=== PATIENT | female | born 1965 | race Caucasian/White ===

== ENCOUNTER 2018-05-02 13:15 | Emergency (ER) | payer OTHER ==
[~2018-05-02] VITALS: Ht 162.6 cm; Wt 127.0 kg
[~2018-05-02 13:15] MED LIST: BUPRENORPHINE1 EACH TD; HYDROCHLOROTHIA25 MG PO; LABETALOL HCL100 MG PO; LOSARTAN POTASS50 MG PO; OMEPRAZOLE20 MG PO
--- OUTSIDE RECORDS SUMMARY | 2018-05-02 13:18 | XMS ---
PreManage Notification: LORI MARR Security Instructor Physical Events No recent Security Events currently on file CRITERIA MET - PDMP CARE PROVIDERS KRISTOFER [facility] 01/22/2018-Current PHONE: [phone] Kristin has no Care Guidelines for this patient. ESonja VISIT COUNT (12 MO.) 1 Migd[facility] In[facility] 2 JULIAN Newell TOTAL 3 NOTE: Visits indicate total known visits. ED/UCC VISIT TRACKING (12 MO.) 05/02/2018 13:15 JULIAN Pedroza TYPE: Emergency COMPLAINT: - BILAT FLANK PAIN 01/19/2018 09:11 JULIAN Pedroza TYPE: Emergency COMPLAINT: - L EYE PAIN/INJURY DIAGNOSES: - Ocular pain, left eye 12/25/2017 05:45 [facility]: Emergency DIAGNOSES: - CP SOB - Shortness of Breath - Chest Pain - Other chest pain - Solitary pulmonary nodule INPATIENT VISIT TRACKING (12 MO.) No inpatient visits to display in this time frame [email or web address]
[2018-05-02] MEDS ORDERED: NORCO 5-325 TA1 EACH PO (13:42)
[2018-05-02] MEDS ORDERED: PAROXETINE HCL40 MG PO (13:43)
[2018-05-02] MEDS ORDERED: LYRICA100 MG PO (13:43)
[2018-05-02] MEDS ORDERED: METHYLPREDNISOLO4 M1 PO (18:41)
[2018-05-02] MEDS ORDERED: ATIVAN1 MG PO (18:41)
== END 2018-05-02 19:01 | disposition home or self-care (01) ==
LOC: ED 13:15
DX: M54.5 Low back pain (principal); F17.200 Nicotine dependence, unspecified, uncomplicated; Z88.1 Allergy status to other antibiotic agents; Z88.0 Allergy status to penicillin; Z91.048 Other nonmedicinal substance allergy status
CPT/HCPCS: 72158; 80053; 81001; 85025; 96361; 99284-25; A9579; J1170; J1885; J2060; J2405; J2930; J7040

== ENCOUNTER 2024-07-16 09:15 | Inpatient (IN) | payer OTHER ==
[~2024-07-16] VITALS: Ht 162.6 cm; Wt 125.1 kg
[~2024-07-16 09:15] MED LIST changes: +ATIVAN1 MG PO; +HYDROCODON-ACE1 EA10 PO; +LYRICA100 MG PO; +METHYLPREDNISOLO4 M1 PO; +PAROXETINE HCL40 MG PO
--- OUTSIDE RECORDS SUMMARY | 2024-07-16 09:20 | XMS ---
PreManage Notification: LORI MARR Security Analytic Programmer Events No recent Security Events currently on file CRITERIA MET - [facility] - 2 Visits in 30 Days CARE PROVIDERS KRISTOFER [facility] 01/22/2018-Current PHONE: Unknown DENIA MCMAHON Internal Medicine Current PHONE: Unknown Kristin has no Care Guidelines for this patient. Marcia VISIT COUNT (12 MO.) [address] [place] [address] Mini Lozoya (Cassi Ye) [address] [place] [address] TOTAL 9 NOTE: Visits indicate total known visits. ED/UCC VISIT TRACKING (12 MO.) 07/16/2024 09:16 [facility] TYPE: Emergency COMPLAINT: - POSS STROKE SYMPTOMS [facility]24 12[facility]Cassi Ye[facility] TYPE: Emergency DIAGNOSES: - Other chest pain - Chest Pressure 02/16/2024 07:59 [facility] Cassi Ye PHIL (Cassi Ye) TYPE: Emergency DIAGNOSES: - Cellulitis, unspecified - Rectal abscess - Systemic inflammatory response syndrome (SIRS) of non-infectious origin without acute organ dysfunction - Abscess - poss abcess - poss abcess on rectum 01/23/2024 13:04 [facility] Cassi Ye PHIL (Cassi Ye) TYPE: Emergency DIAGNOSES: - Influenza due to other identified influenza virus with other respiratory manifestations - bodyaches - Emesis 11/29/2023 11:43 [facility] Cassi Ye PHIL (Cassi Ye) TYPE: Emergency DIAGNOSES: - Colic - Noninfective gastroenteritis and colitis, unspecified - abd pain - Abdominal Pain 11/28/2023 06:56 [facility] Cassi eY PHIL (Cassi Ye) TYPE: Emergency DIAGNOSES: - Infrarenal abdominal aortic aneurysm, without rupture - Noninfective gastroenteritis and colitis, unspecified - ABD PAIN, VOMITING - Abdominal Pain - Diarrhea (Adult) 11/24/2023 08:37 [facility] [place] TYPE: Emergency DIAGNOSES: - Injury of conjunctiva and corneal abrasion without foreign body, left eye, initial encounter - Eye injury 10/22/2023 08:46 [facility] Cassi VILLARREAL ([place]) TYPE: Emergency DIAGNOSES: - Bronchitis, not specified as acute or chronic - chest discomfort, cough - Chest Pain - Cough 08/07/2023 16:39 [facility] Cassi VILLARREAL ([place]) TYPE: Emergency DIAGNOSES: - Other enthesopathies, not elsewhere classified - Hand Pain - worsening finger infection INPATIENT VISIT TRACKING (12 MO.) 02/16/2024 07:[facility]Cassi Ye[facility] TYPE: Medical Surgical DIAGNOSES: - Acute kidney failure, unspecified - Candidal esophagitis - Candidal stomatitis - Cellulitis of buttock - Cellulitis, unspecified - Chronic pain syndrome - Cutaneous abscess of buttock - Hypo-osmolality and hyponatremia - Insomnia, unspecified - Multiple sclerosis - Polyneuropathy, unspecified - Rectal abscess - Systemic inflammatory response syndrome (SIRS) of non-infectious origin without acute organ dysfunction - Systemic sclerosis, unspecified [id number]
[2024-07-16] MEDS ORDERED: SODIUM CHLORIDE 0.9% 1,000 ML IV ONE (09:30)
[2024-07-16] MEDS ORDERED: ondansetron HCL 4 MG/2 ML VIAL IV ONE (09:45)
[2024-07-16 10:00] LABS: BASOPHILS 0.6 % (0.1-1.2); EOSINOPHILS 6.9 % (0.7-5.8); HEMATOCRIT 31.9 % (34.1-44.9); HEMOGLOBIN 9.9 g/dL (11.2-15.7); LYMPHOCYTES 20.8 % (19.3-51.7); MCH 26.6 PG (25.6-32.2); MCV 85.8 fL (79.4-94.8); MONOCYTES 8.5 % (4.7-12.5); PLATELET COUNT 232 K/uL (182-369); RBC 3.72 M/uL (3.93-5.22)
[2024-07-16] MEDS ORDERED: MIDAZOLAM HCL 2 MG/2 ML VIAL IV ONE ×2 (10:00→10:45)
[2024-07-16] MEDS ORDERED: diphenhydrAMINE HCL 50 MG/ML VIAL IV ONE (10:00)
[2024-07-16] MEDS ORDERED: PROCHLORPERAZINE EDISYLATE 10 MG/2 ML VIAL IV ONE (10:00)
[2024-07-16 10:20] LABS: ALBUMIN 3.4 g/dL (3.4-5.0); ALCOHOL, MEDICAL <3 ng/dL (<3); ALKALINE PHOSPHATASE 87 U/L (46-116); ALT (SGPT) 13 U/L (14-59); AST (SGOT) 11 U/L (15-37); BILIRUBIN, TOTAL 0.3 mg/dL (0.2-1.0); BUN/CREATININE RATIO 21.64 (6.0-28.6); CARBON DIOXIDE 29 mmol/L (21-32); CHLORIDE 107 mmol/L (98-107); CREATININE, SERUM 0.97 mg/dL (0.55-1.02); GLOMERULAR FILTRATION RATE,EST 68 mL/min (>60); PROTEIN, TOTAL 6.5 g/dL (6.4-8.2); UREA NITROGEN 21 mg/dL (7-18)
[2024-07-16 10:30] LABS: BILIRUBIN, URINE NEGATIVE (negative); BLOOD/HGB, URINE NEGATIVE (Negative); KETONE, URINE NEGATIVE (Negative); LEUK ESTERASE, URINE TRACE (negative); NITRITE, URINE NEGATIVE (negative); PH, URINE 7.5 (5-7)
[2024-07-16 10:38] LABS: EPITHELIAL CELLS, URINE 0 /lpf (0-1+); RED BLOOD CELLS, URINE 0-1 /hpf (0-5)
[2024-07-16 10:39] LABS: BACTERIA, URINE NONE SEEN /hpf (negative); CASTS, URINE NONE SEEN \\lpf; COLLECTION TYPE, URINE CLEAN CATCH; CRYSTALS, URINE NONE SEEN (0-1+); REFLEX CULTURE, URINE No (No)
[2024-07-16 10:50] LABS: AMPHETAMINES, URINE NEGATIVE (NEGATIVE); BENZODIAZEPINE, URINE NEGATIVE (NEGATIVE); BUPRENORPHINE, URINE NEGATIVE (NEGATIVE); CANNABINOID, URINE NEGATIVE (NEGATIVE); COCAINE, URINE NEGATIVE (NEGATIVE); ECSTASY, URINE NEGATIVE (NEGATIVE); FENTANYL, URINE NEGATIVE (NEGATIVE); METHADONE, URINE NEGATIVE (NEGATIVE); OPIATES, URINE POSITIVE (NEGATIVE); OXYCODONE, URINE NEGATIVE (NEGATIVE); PHENCYCLIDINE, URINE NEGATIVE (NEGATIVE)
[2024-07-16] MEDS ORDERED: ASPIRIN 81 MG CHEW PO ONE (12:00)
[2024-07-16] MEDS ORDERED: ondansetron HCL 4 MG/2 ML VIAL IV PRN (13:15)
[2024-07-16] MEDS ORDERED: ACETAMINOPHEN 325 MG TAB PO PRN (13:15)
[2024-07-16] MEDS ORDERED: SODIUM CHLORIDE 0.9% 1,000 ML IV SCH (13:15)
[2024-07-16] MEDS ORDERED: CLOPIDOGREL BISULFATE 75 MG TAB PO ONE (13:30)
--- NOTE | 2024-07-16 13:33 | EKG ---
[facility] [address] [place] [address] Signed Normal sinus rhythm Normal ECG No previous ECGs available Confirmed by Nicholas Villarreal MD () on 07/16/2024 1:33:29 PM Electronically Signed By: NICHOLAS VILLARREAL MD 07/16/24 1333 PATIENT NAME: LORI MARR ASH Electrocardiogram DATE OF : 65 PHYSICIAN: NICHOLAS VILLARREAL MD REPORT #: [id number] REPORT IS CONFIDENTIAL AND NOT TO BE RELEASED WITHOUT AUTHORIZATION
[2024-07-16 13:58] VITALS: BP 131/79
[2024-07-16 14:00] VITALS: BP 131/79
[2024-07-16] MEDS ORDERED: methylPREDNISolone SOD SUCC 1,000 MG in SODIUM CHLORIDE 0.9% 250 ML IV SCH (15:30)
--- NOTE | 2024-07-16 15:46 | NUR ---
ALERT AND ORIENTED IN ROOM. SISTER AND SON AT BEDSIDE. PATIENT LIVES IN SINGLE LEVEL HOME, 4 STEPS TO GET INSIDE. SHE LIVES WITH SON, [id number] AND GRANDDAUGHTER. STATES SHE HAS NO DME, BUT WAS SUPPOSED TO HAVE A 4 WHEELED WALKER AFTER SHE WAS DC'D FROM [facility]. STATES SHE WAS IN [facility] THE BEGINNING OF THIS YEAR AND WAS DC'D TO HOME IN THE MIDDLE OF MARCH. HISTORY OF MS AND HAS DAYS THAT ARE DIFFICULT FOR HER TO AMBULATE. SHE DRIVES AT [place]. DENIES FINANCIAL HARDSHIP. SHE STATES PAYING UTILITES, FOOD AND MEDICATIONS ARE NOT AN ISSUE. PT CURRENTLY RECOMMENDING HOME HEALTH. INFORMED PATIENT OF THIS AND SHE STATES [facility] OUT OF [place], [place] IS HER PREFERENCE WHEN OPTIONS PROVIDED. CALLED [facility] IN [place], [place] TO SEE IF THEY RECEIVED AN ORDER FOR A WALKER, BUT WERE NEVER ABLE TO GET AHOLD OF PATIENT FOR DELIVERY. IF SHE CALLS [facility], THEY CAN RESTART THE PROCESS TO GETTING HER A WALKER. PHONE NUMBER FOR [facility] PROVIDED TO PATIENT AND ENCOURAGED HER TO CALL TO GET HER WALKER.
[2024-07-16] MEDS ORDERED: NIFEDIPINE ER60 MG PO (16:16)
[2024-07-16] MEDS ORDERED: DULOXETINE HCL30 MG PO (16:17)
[2024-07-16] MEDS ORDERED: METOPROLOL SUC100 MG PO (16:18)
[2024-07-16] MEDS ORDERED: MODAFINIL200 MG PO (16:19)
[2024-07-16] MEDS ORDERED: LOSARTAN POTAS100 MG PO (16:19)
--- NOTE | 2024-07-16 16:57 | NUR ---
Patient awake in bed watching tv, no acute distress. Patient is on room air, respirations non labored. Scheduled [place] admin at this time. Pt denies needs at this time. Speech is clear, pt conversing with staff appropriately. Call light within reach.
[2024-07-16] MEDS ORDERED: HYDROCODONE/ACETA 5/325 TAB PO SCH (17:00)
[2024-07-16 17:51] VITALS: BP 148/98
[2024-07-16 18:53] VITALS: BP 148/98
--- NOTE | 2024-07-16 19:14 | NUR ---
REPORT RECEIVED FROM DAY SHIFT RN. PT LYING IN BED ALERT AND ORIENTED. DENIES NEEDS. WHITE BOARD UPDATED. CALL LIGHT IN REACH.
[2024-07-16 20:03] VITALS: BP 145/75
[2024-07-16 20:28] VITALS: BP 145/75
[2024-07-16] MEDS ORDERED: PREGABALIN 100 MG CAP PO SCH (21:00)
[2024-07-16] MEDS ORDERED: HYDROCODONE/ACETA 5/325 TAB PO PRN (21:00)
--- NOTE | 2024-07-16 21:03 | NUR ---
EVENING ASSESSMENT COMPLETE. SCHEDULED MEDS ADMIN PER EMAR. PT REPORTS BACK/METCALF PAIN 08/15. PRN FOR PAIN ADMIN PER EMAR. NEURO CHECK WNL. SENIOR QUALITY ANALYST STRENGTH EQUAL BILAT. PT DENIES BLURRED VISION OR DIZZINESS. NEW PUREWICK PLACED AFTER RYLEE CARE. PT ABLE TO ASSIST WITH TURNING IN BED. PT DENIES QUESTIONS OR CONCERNS. CALL LIGHT IN REACH.
--- NOTE | 2024-07-16 22:22 | NUR ---
PATIENT CALLED REQUESTING SODA. GIVEN. NO OTHER NEEDS AT THIS TIME.
[2024-07-17] VITALS (11 sets, daily range): BP systolic 159–203; BP diastolic 82–97
--- NOTE | 2024-07-17 00:01 | NUR ---
PT RESTING IN BED WITH EYES CLOSED. RESPIRATIONS EVEN. CALL LIGHT IN REACH.
--- NOTE | 2024-07-17 01:28 | NUR ---
PT RESTING WITH EYES CLOSED. AWAKENS EASILY. VS AND I&O OBTAINED. BP ELEVATED. MD NOTIFIED. NEW TELEPHONE ORDERS RECEIVED VERIFIED WITH READBACK METHOD. PT ASYMPTOMATIC. NEURO CHECK UNCHANGED. ASSISTED TO REPOSITION IN BED TO LEFT SIDE WITH PILLOWS. NO FURTHER NEEDS. CALL LIGHT IN REACH.
[2024-07-17] MEDS ORDERED: LOSARTAN POTASSIUM 100 MG TAB PO ONE (01:30)
--- NOTE | 2024-07-17 02:14 | NUR ---
PT REPORTS HEADACHE PAIN 08/15. PRN FOR PAIN ADMIN PER EMAR. WARM BLANKET PROVIDED. NO FURTHER NEEDS.
--- NOTE | 2024-07-17 03:47 | NUR ---
PT RESTING IN BED WITH EYES CLOSED. RESPIRATIONS EVEN. CALL LIGHT IN REACH.
[2024-07-17 05:21] LABS: BASOPHILS 0 % (0.1-1.2); EOSINOPHILS 0 % (0.7-5.8); HEMATOCRIT 30.1 % (34.1-44.9); HEMOGLOBIN 9.4 g/dL (11.2-15.7); LYMPHOCYTES 16.6 % (19.3-51.7); MCH 26.5 PG (25.6-32.2); MCHC 31.2 g/dL (32.2-35.5); MCV 84.8 fL (79.4-94.8); MONOCYTES 3.5 % (4.7-12.5); NEUTROPHILS 79.7 % (34.0-71.1); PLATELET COUNT 222 K/uL (182-369); RBC 3.55 M/uL (3.93-5.22)
[2024-07-17 05:37] LABS: ALBUMIN 3.3 g/dL (3.4-5.0); ALBUMIN/GLOBULIN RATIO 1.06 (1.1-2.4); ANION GAP 12.5 (7-21); BILIRUBIN, TOTAL 0.2 mg/dL (0.2-1.0); BUN/CREATININE RATIO 23.52 (6.0-28.6); CALCIUM 9.2 mg/dL (8.5-10.1); CHOLESTEROL/HDL RATIO 3.4; CREATININE, SERUM 0.85 mg/dL (0.55-1.02); MAGNESIUM 1.7 mg/dL (1.8-2.4); PHOSPHORUS, INORGANIC 4.3 mg/dL (2.5-4.9); POTASSIUM 4.5 mmol/L (3.5-5.1); PROTEIN, TOTAL 6.4 g/dL (6.4-8.2)
--- NOTE | 2024-07-17 05:54 | NUR ---
LAB IN FOR MORNING DRAW. NEW PUREWICK PLACED AFTER RYLEE CARE. VS AND I&O OBTAINED. BREAKFAST ORDER RECEIVED. NO FURTHER NEEDS. CALL LIGHT IN REACH.
--- NOTE | 2024-07-17 06:51 | NUR ---
PER PRIMARY RN REQUEST, IN ROOM TO ADMINISTER PRN PAIN MEDICATION-SEE EMAR. PT REQUESTING 2 NORCOS, DISCUSSED WITH PT MAX NORCO DAILY INTAKE W/ PT PER EMAR. PT VERBALIZED UNDERSTANDING. CALL LIGHT IN REACH. NO FURTHER NEEDS OR CONCERNS VERBALIZED.
--- NOTE | 2024-07-17 07:35 | NUR ---
UR CLINICAL REVIEW: YANICK-PER MCG REVIEW MEETS INPT FOR CVA WITH R UPP EXTREMITY WEAKNESS [facility] 07/16/24 @ 1334 ORDER MATCHES REG CLINICALS FAXED TO [facility] FOR REVIEW DISCHARGE DISPO PENDING FURTHER PT/OT EVAL 07/19/24
[2024-07-17] MEDS ORDERED: MAGNESIUM CHLORIDE 64 MG TABCR PO ONE (07:45)
[2024-07-17] MEDS ORDERED: ASPIRIN 81 MG CHEW PO SCH (08:00)
[2024-07-17] MEDS ORDERED: ENOXAPARIN SODIUM 40 MG/0.4 ML SYR SUB-Q SCH ×2 (09:00)
[2024-07-17] MEDS ORDERED: methylPREDNISolone SOD SUCC 1,000 MG in SODIUM CHLORIDE 0.9% 250 ML IV SCH (09:00)
[2024-07-17] MEDS ORDERED: CLOPIDOGREL BISULFATE 75 MG TAB PO SCH (09:00)
[2024-07-17] MEDS ORDERED: DULOXETINE HCL 30 MG CAP PO SCH (09:00)
[2024-07-17] MEDS ORDERED: methylPREDNISolone SOD SUCC 125 MG/2 ML VIAL IV SCH (09:00)
[2024-07-17] MEDS ORDERED: PANTOPRAZOLE SODIUM 40 MG TABEC PO SCH (09:02)
[2024-07-17] MEDS ORDERED: METOPROLOL SUCCINATE 100 MG TABCR PO SCH (09:02)
--- NOTE | 2024-07-17 09:13 | NUR ---
THIS RN SEES THE PT FOR A SIMPLE WOUND CONSULT OF THE COCCYX/GLUTEAL CLEFT AREA. PT REPORTS THAT SHE HAS BEEN GOING TO [facility] FOR A WOUND NEAR HER RETCUM, BUT THEY WERE TALKING ABOUT ENDING TREATMENT WITHIN THE NEXT FEW WEEKS. UPON ASSESSMENT, IT IS NOTED THERE THERE IS NO OPEN WOUNDS OR BREAKS IN THE SKIN NEAR HER RECTUM. SHE DOES HOWEVER HAVE SLIGHT EXCORIATION DUE TO FRICTION/SHEARING ON THE COCCYX AREA IN THE GLUTEAL CLEFT. [facility] APPRAISER CHANTELLE ALSO PUTS EYES ON THE WOUND. IT IS RECOMMENDED THAT STAFF APPLY A FOAM DRESSING PROPHYLATICALLY TO PROTECT THE SKIN. IT IS ALSO RECOMMENDED THAT IF THEY ARE GOING TO CONTINUE TO USE THE PUREWICK TO APPLY BARRIER CREAM AROUND THE AREA TO PROTECT THE SKIN FROM ANY LEAKED URINE. PT AND RN'S VERBALIZE UNDERSTANDING AND AGREEMENT.
[2024-07-17] MEDS ORDERED: hydroCHLOROthiazide 25 MG TAB PO SCH (09:14)
--- NOTE | 2024-07-17 09:56 | NUR ---
ECHO in working with patient.
--- NOTE | 2024-07-17 09:56 | NUR ---
THIS RN ASSISTED SAMPLE DRILLER WITH BUBBLE STUDY. PT TOLERATED, IV SOLUMEDROL RESTARTED. SAMPLE DRILLER LEFT TO COMPLETE REMAINING STUDY. PRIMARY RN UPDATED. CALL LIGHT LEFT WITHIN PT REACH.
--- NOTE | 2024-07-17 10:00 | NUR ---
Dr. Almendarez updated on bp-/, p72. No new orders at this time.
--- NOTE | 2024-07-17 10:29 | NUR ---
VISITED DURING SPIRITUAL CARE ROUNDS. PT IN OVERALL GOOD SPIRITS, STATES NO IMMEDIATE NEEDS. [employer] FAMILY SUPPORT SOURCE OF STRENGTH. DAIRY PROCESSING SUPERVISOR PROVIDED SUPPORTIVE PRESENCE, HOSPITALITY, PRAYER, FACILITATED INTERACTION WITH THERAPY ANIMAL. PT EXPRESSED GRATITUDE, HOPE.
--- NOTE | 2024-07-17 10:33 | NUR ---
HOURLY ROUNDING. PATIENT IS SITTING UP IN BED. LUNCH HAS BEEN ORDERED TO HER LIKING. WATER HAS BEEN REPLENISHED AND CALL LIGHT HAS BEEN PLACED WITHIN REACH. NO FURTHER REQUEST FROM PATIENT AT THIS TIME
--- NOTE | 2024-07-17 11:15 | NUR ---
I was able to speak with Janice after two attempts. She would like to do OP therapy after dc. She is unsure if she wants it in [place] or [place]. She works in [place] and would like to have therapy here if she will be allowed to return to work soon. She states concern as she spent close to a month in the hospital out of town. She states she is just getting caught up on her bills. I spoke with Dr. Almendarez and he feels she can return to work on Monday. Pt would like to have PT at the [facility] in [place] if this is the case. Let her know I will fax her chart to OP at the [facility] on discharge. She denies other needs. We also discussed Disability. She attempted to complete on line, but had errors. She was notified by SS to go to the office. I let her know where the office in [place]. She states she can also go to the one in [place]. She plans on return to home with her son. Per AM report, pt will need 1-2 more days before dc.
--- NOTE | 2024-07-17 11:25 | NUR ---
Patient reports 7/10 headache and back pain. Admin two tabs norco 5/325mg po at this time. Patient's speech remains clear and appropriate.
--- NOTE | 2024-07-17 11:43 | NUR ---
HOURLY ROUNDING. NO REQUEST FROM PATIENT. HEATHER PATIENT ROOM. CALL LIGHT PLACED WITHIN REACH
[2024-07-17] MEDS ORDERED: PHARMACY RENAL DOSE ADJUSTMENT 1 DOSE MISC PO SCH (12:00)
[2024-07-17] MEDS ORDERED: LIDOCAINE1 EACH TOP (13:11)
[2024-07-17] MEDS ORDERED: ONDANSETRON ODT4 MG PO (13:11)
--- NOTE | 2024-07-17 13:13 | NUR ---
HOURLY ROUNDING. OFFERED PATIENT A SHOWER, PATIENT DECLINED. SHOWER IS SET UP FOR PATIENT WITH TOWEL AND SOAPS. NURSE HAS BEEN NOTIFIED OF HIGH BP
--- NOTE | 2024-07-17 13:27 | NUR ---
medications reconciled using pharmacy records and patient interview
--- NOTE | 2024-07-17 14:52 | NUR ---
Patient in bed watching tv, alert and oriented x3, no acute distress. Patient denies needs at this time. Personal supplies and call light within reach.
--- NOTE | 2024-07-17 15:31 | NUR ---
BP cuff replaced for appropriate size. bp 184/87, p66. Patient in bed resting in bed, she reports an ongoing headache. Ice pack provided to patient at this time for comfort.
--- NOTE | 2024-07-17 17:46 | NUR ---
HOURLY ROUNDING. PATIENT REFUSED SHOWER. AFTER BEING OFFERED ONE CALL LIGHT HAS BEEN PLACED WITHIN REACH
--- NOTE | 2024-07-17 18:46 | NUR ---
Admin two tabs norco 5/325mg po for reports of 6/10 back pain. Snack provided to patient at this time. Patient reports her headache has improved. No further needs, call light within reach.
--- NOTE | 2024-07-17 19:39 | NUR ---
REPORT RECEIVED FROM DAYSHIFT RN. PATIENT RESTING IN BED, WATCHING TV. NO NEEDS IDENTIFIED. RESPIRATIONS EVEN AND UNLABORED. PATIENT REPORTS SHE STILL HAS A PERSISTENT HEADACHE BUT STATES SHE WAS GIVEN PAIN MEDICATION BY THE DAYSHIFT RN. DENIES ANY NEEDS, CALL LIGHT IN REACH.
[2024-07-17] MEDS ORDERED: ATORVASTATIN 40 MG TAB PO SCH (21:00)
--- NOTE | 2024-07-17 21:20 | NUR ---
VS OBTAINED AND RECORDED. ASSESSMENT COMPLETED. PATIENT DENIES NUMBNESS OR TINGLING IN EXTREMITIES, REPORTS 7/10 HEADACHE THAT SHE STATES IS SLOWLY IMPROVING. 5/5 STRENGTH IN EXTREMITIES. BP INITIALLY ELEVATED, SYSTOLLICALLY ABOVE 180. VERIFIED WITH MANUAL BP. MANUAL BP DOCUMENTED IN CHART. PATIENT REQUESTED ALEX CHARLEE, GIVEN PER REQUEST. NO FURTHER NEEDS, CALL LIGHT IN REACH. SCHEDULED MEDICATION ADMINISTERED PER ORDER.
--- NOTE | 2024-07-17 23:19 | NUR ---
ROUNDED ON PATIENT, PATIENT RESTING WITH EYES CLOSED, RESPIRATIONS ARE EVEN AND UNLABORED. NO NEEDS IDENTIFIED, CALL LIGHT IN REACH
[2024-07-18] VITALS (14 sets, daily range): BP systolic 139–184; BP diastolic 79–92
--- NOTE | 2024-07-18 00:39 | NUR ---
CALL LIGHT ANSWERED. PRN PAIN MEDICATION GIVEN FOR 7/10 HEADACHE AND BACK DISCOMFORT. PATIENT DENIES FURTHER NEEDS. PATIENT REMINDED TO USE CALL LIGHT TO CALL RN TO GET UP TO RESTROOM, UNDERSTANDING VERBALIZED. NO FURTHER NEEDS, CALL LIGHT IN REACH
--- NOTE | 2024-07-18 01:36 | NUR ---
BUSINESS CASE ANALYST OBTAINED VITALS AND I&O. PT STATES NO NEEDS AT THIS TIME. CALL LIGHT WITHIN REACH.
--- NOTE | 2024-07-18 01:46 | NUR ---
CERTIFIED SOLID WASTE FACILITY OPERATOR INFORMED RN OF BP RESULTS. BP TAKEN MANUALLY AND DOCUMENTED IN CHART. PATIENT DENIES ANY NEEDS, CALL LIGHT IN REACH.
--- NOTE | 2024-07-18 03:30 | NUR ---
ROUNDED ON PATIENT, PATIENT RESTING WITH EYES CLOSED, RESPIRATIONS EVEN AND UNLABORED. NO NEEDS IDENTIFIED, CALL LIGHT IN REACH
--- NOTE | 2024-07-18 05:37 | NUR ---
VS OBTAINED AND RECORDED. PATIENT ALERT AND ORIENTED X4, REPORTS HEADACHE IS IMPROVING AND IS NOW 4/10. INTAKE AND OUTPUT DOCUMENTED. DENIES ANY NEEDS, CALL LIGHT IN REACH.
[2024-07-18 05:43] LABS: ALBUMIN 3.7 g/dL (3.4-5.0); ALBUMIN/GLOBULIN RATIO 1.19 (1.1-2.4); ANION GAP 13.3 (7-21); BILIRUBIN, TOTAL 0.2 mg/dL (0.2-1.0); BUN/CREATININE RATIO 28.91 (6.0-28.6); CALCIUM 9.5 mg/dL (8.5-10.1); CREATININE, SERUM 0.83 mg/dL (0.55-1.02); POTASSIUM 4.3 mmol/L (3.5-5.1); PROTEIN, TOTAL 6.8 g/dL (6.4-8.2)
[2024-07-18 05:52] LABS: HEMATOCRIT 31.3 % (34.1-44.9); HEMOGLOBIN 9.9 g/dL (11.2-15.7); MCH 26.3 PG (25.6-32.2); MCHC 31.6 g/dL (32.2-35.5); MCV 83.2 fL (79.4-94.8); PLATELET COUNT 242 K/uL (182-369); RBC 3.76 M/uL (3.93-5.22)
[2024-07-18 06:06] LABS: BANDS, MANUAL DIFF 1; BASOPHILS, MANUAL DIFF 1; LYMPHOCYTES, MANUAL DIFF 18; MONOCYTES, MANUAL DIFF 4; NEUTROPHILS, MANUAL DIFF 76
--- NOTE | 2024-07-18 06:49 | NUR ---
CALL LIGHT ANSWERED. PT NEEDED TO USE BATHROOM. TRAIN ENGINEER SBA WITH FWW TO BATHROOM. PT VOIDED AND ASSISTED BACK TO BED. PT REQUESTING PAIN MED. RN NOTIFED. PT STATES NO FURTHER NEEDS AT THIS TIME. CALL LIGHT WITHIN REACH.
--- NOTE | 2024-07-18 07:01 | NUR ---
REPORT RECEIVED FROM ALARM INVESTIGATOR MARTINA LOVETT. PATIENT IS LYING IN BED WITH HOB ELEVATED. PATIENT WITH EYES OPEN AND RESPIRATIONS ARE EVEN AND UNLABORED. PATIENT STATED NO FURTHER NEEDS AT THIS TIME. CALL LIGHT AND PERSONAL BELONGINGS ARE WITHIN REACH.
--- NOTE | 2024-07-18 08:30 | NUR ---
PATIENT IS LYING IN BED WITH HOB ELEVATED. VITAL SIGNS TAKEN AND DOCUMENTED IN THE CHART. BREAKFAST TRAY REMOVED AT THIS TIME. 0800 AND 0900 MEDICATIONS ADMINISTERED PER THE EMAR. FULL ASSESSMENT COMPLETE AND DOCUMENTED IN THE CHART. PATIENT IS ALERT AND ORIENTED TIMES FOUR. PATIENT RATED PAIN 7/10 IN THE BACK AND A HEADACHE. PATIENT IS NOT REQUESTING ANYTHING FOR PAIN AT THIS TIME. PATIENT IS ON TELEMETRY NUMBER 2 AND IN NORMAL SINUS RHYTHM. CARDIAC WITH NORMAL S1 AND S2 ON AUSCULTATION. RADIAL AND PEDAL PULSES ARE STRONG BILATERALLY. NO EDEMA NOTED. CAPILLARY REFILL IN THE UPPER AND LOWER EXTREMITIES IS LESS THAN 3 SECONDS BILATERALLY. SENSATION INTACT WITH NO COMPLAINTS OF NUMBNESS OE TINGLING. PT AND OT ARE ORDERED. IV SITE FLUSHED WITH 10 ML NORMAL SAINE AND IS SALINE LOCKED. IV DRESSING IS CLEAN, DRY, AND INTACT. SKIN WITH SCATTERED TATTOOS NOTED. PATIENT IS ON A REGULAR DIET AND BOWEL TONES ARE ACTIVE IN ALL FOUR QUADRANTS. PATIENT IS ON ROOM AIR AND LUNG SOUNDS ARE CLEAR THROUGHOUT. PATIENT STATED NO FURTHER NEEDS AT THIS TIME. CALL LIGHT AND PERSONAL BELONGINGS ARE WITHIN REACH.
[2024-07-18] MEDS ORDERED: NIFEdipine XL 30 MG TAB PO SCH (09:00)
[2024-07-18] MEDS ORDERED: LOSARTAN POTASSIUM 100 MG TAB PO SCH (09:00)
--- NOTE | 2024-07-18 09:03 | NUR ---
OCCUPATIONAL THERAPY IS IN THE ROOM AT THIS TIME. PATIENT IS IN THE BATHROOM.
--- NOTE | 2024-07-18 09:52 | NUR ---
HOURLY ROUNDING. PATIENT IS IN THE SHOWER, LINENS HAVE BEEN CHANGED. AND RECLINER CHAIR HAS BEEN PREPED FOR PATIENT TO SIT IN. (Fernando pad) pillows. WATER CUP HAS BEEN FILLED AN GINGERALE GIVEN. PATIENT REPORTED HAVING A SLIGHT HEAD PAIN, PATIENT REPORTS IT BEING NORMAL. RN HAS BEEN NOTIFIED. FOOT SOCKS HAVE BEEN PUT ON PATIENT
--- NOTE | 2024-07-18 10:36 | NUR ---
PATIENT IS SITTING UPRIGHT IN THE CHAIR AND IS LOOKING ON HER PHONE. PATIENT IS ON ROOM AIR. CALL LIGHT AND PERSONAL BELONGINGS ARE WITHIN REACH.
--- NOTE | 2024-07-18 11:00 | NUR ---
Spoke with Janice. She plans on dc tomorrow. Denies any needs. Will do OP therapy on dc.
--- NOTE | 2024-07-18 11:17 | NUR ---
0900 METHYLPREDNISOLONE INFUSION STARTED AT THIS TIME. TRAUMA/STROKE RN IS ROUNFING ON THE PATIENT AT THIS TIME WITH THIS RN IN THE ROOM. EDUCATION GIEN AND PATIENT ASKED QUESTIONS. PATIENT EXPRESSED UNDERSTANDING THROUGHOUT THE INFORMATION BEING GIVEN. PATIENT RIGHT ARM WITH A FACE CLOTH AND DENISE WRAP AROUND THE IV SITE TO HELP A REMINDER FOR BENDING THE ARM. PATIENT STATED NO FURTHER NEEDS AT THIS TIME. CALL LIGHT AND PERSONAL BELONGINGS ARE WITHIN REACH.
--- NOTE | 2024-07-18 11:25 | NUR ---
Stroke Rounds: Patient resting in bed. Discussed it was reported her symptoms of "dizziness and spinning" had been happening for 2 days. It was discussed that these are symtpoms of [facility]. Educated on the symtpoms of [facility] and to call 911 when having these symtpoms. We discussed that "T" in [facility] is time, and how the time is important for deciding if the patient is a canidate for time senitive treatments (TNK, possible thrombectomy). Education pamplet and [facility] refrigerator magnet were provided.
--- NOTE | 2024-07-18 12:23 | NUR ---
AT 10:10 AM I REATTACHED PATIENTS TELE AFTER HER SHOWER, DAYTON VILLAR HAD ASKED MARTINA RITTER TO DO IT THEN MARTINA RITTER ASKED ME TO DO IT.
--- NOTE | 2024-07-18 12:57 | NUR ---
HOURLY ROUNDING. PATIENT IS IN BED. FAMILY (SON, AND GRANDDAUGHTER) IS AT BED SIDE. PATIENT REPORTED NOT BEING HUNGRY DUE TO HAVING A BIG BREAKFEAST. NO REQUEST FROM PATIENT AT THIS TIME.
--- NOTE | 2024-07-18 13:24 | NUR ---
In with pt for IV Pump alarming, infusion complete. IV s/l at this time, good return, flushes well. Pt denies any pain, no swelling, redness or leaking noted, dressing intact. Pt denies any needs at this time. Primary RN notified.
--- NOTE | 2024-07-18 13:51 | NUR ---
1500 LYRICA ADMINISTERED PER THE EMAR. FOCUSED ASSESSMENT COMPLETE AND DOCUMENTED IN THE CHART. PATIENT IS ALERT AND ORIENTED TIMES FOUR. PATIENT WITH NO COMPLAINTS OF WEAKNESS OR NUMBNESS OR TINGLING. IV SITE FLUSHED WITH 10 ML NORMAL SALINE AND IS SALINE LOCKED. IV DRESSING IS CLEAN, DRY, AND INTACT. CARDIAC WITH NORMAL S1 AND S2 ON AUSCULTATION. PATIENT IS ON TELEMETRY NUMBER 2 AND IS IN NORMAL SINUS RHYTHM. PATIENT RATED PAIN 5/10 A HEADACHE. PATIENT IS NOT REQUESTING ANYTHING FOR PAIN AT THIS TIME. IV PUMP CLEARED OF INTAKE FLUIDS. PATIENT STATED NO FURTHER NEEDS AT THIS TIME. CALL LIGHT AND PERSONAL BELONGINGS ARE WITHIN REACH.
--- NOTE | 2024-07-18 14:15 | NUR ---
PATIENT IS LYING IN BED WITH EYES CLOSED AND RESPIRATIONS ARE EVEN AND UNLABORED. TV IS ON. CALL LIGHT AND PERSONAL BELONGINGS ARE WITHIN REACH.
--- NOTE | 2024-07-18 15:12 | NUR ---
PATIENT AMBULATED TO THE BATHROOM WITH A CANE AND SBA. PATIENT VOID 300 ML LIGHT YELLOW URINE. PATIENT TOLERATED WELL. PATIENT RETURNED TO BED WITH A BLANKET. PATIENT STATED NO FURTHER NEEDS AT THIS TIME. CALL LIGHT AND PERSONAL BELONGINGS ARE WITHIN REACH.
--- NOTE | 2024-07-18 16:14 | NUR ---
PATIENT IS LYING IN BED WITH EYES OPEN AND RESPIRATIONS ARE EVEN AND UNLABORED. TV IS ON. PATIENT IS REQUESTING PAIN MEDICATION WHEN IS IT AVAILABLE. PATIENT STATED "NO LOPES IF YOU HAVE OTHER THINGS TO DO". THIS RN EDUCATED PATIENT ON LOOKING WHEN SHE IS NEXT DUE. PATIENT EXPRESSED UNDERSTANDING. PATIENT STATED NO FURTHER NEEDS AT THIS TIME. CALL LIGHT AND PERSONAL BELONGINGS ARE WITHIN REACH.
--- NOTE | 2024-07-18 16:48 | NUR ---
PATIENT AMBULATED TO THE BATHROOM WITH SBA WITH THE CANE. PATIENT VOID 550 ML OF URINE. PATIENT TOLERATED WELL. FRESH CUP OF ICE WATER PROVIDED. PRN PAIN MEDICATION ADMINISTERED. PATIENT GIVEN A WARM BLANKET BY SARA FREITAS. PATIENT STATED NO FURTHER NEEDS AT THIS TIME. CALL LIGHT AND PERSONAL BELONGINGS ARE WITHIN REACH.
--- NOTE | 2024-07-18 17:21 | NUR ---
PATIENT IS LYING IN BED WITH HOB ELEVATED. PATIENT WITH EYES OPEN AND RESPIRATIONS ARE EVEN AND UNLABORED. TV IS ON. PATIENT IS EATING DINNER AT THIS TIME. CALL LIGHT AND PERSONAL BELONGINGS ARE WITHIN REACH.
--- NOTE | 2024-07-18 18:05 | NUR ---
PATIENT IN BED AT THIS TIME. SHIP SCRAPER CHARTED I&O'S, MARTINA RITTER CHARTED VITALS. CALL LIGHT WITHIN REACH, NO FURTHER NEEDS.
--- NOTE | 2024-07-18 18:06 | NUR ---
DAYTON YARBROUGH IS IN THE ROOM AT THIS TIME AND GETTING INTAKE AND OUTPUT VALUES. PATIENT ASKED THIS RN QUESTIONS REGARDING A DISCHARGE TIME TOMORROW. PATIENT EDUCATED ON THE MORNING MEETING AND GETTING MORE INFORMATION AND AN ACCURATE DISCHARGE TIME AFTERWARDS. PATIENT EDUCATED ON THE PROCESS ONCE GETTING THE DISCHARGE ORDER. PATIENT EXPRESSED UNDERSTANDING. PATIENT STATED NO FURTHER NEEDS AT THIS TIME. CALL LIGHT AND PERSONAL BELONGINGS ARE WITHIN REACH.
--- NOTE | 2024-07-18 19:22 | NUR ---
REPORT RECEIVED FROM MARTINA RITTER. PATIENT RESTING WITH EYES CLOSED, RESPIRATIONS EVEN AND UNLABORED. PERSONAL BELONGINGS WITHIN REACH. NO NEEDS ARE IDENTIFIED, CALL LIGHT IN REACH.
--- NOTE | 2024-07-18 20:05 | NUR ---
CALL LIGHT ANSWERED. PT NEEDED TO USE BATHROOM. BLOWING ENGINEER SBA WITH CANE TO BATHROOM. PT VOIDED AND ASSISTED BACK TO BED. PT GIVEN JELLO UPON REQUEST. PT STATES NO FURTHER NEEDS AT THIS TIME. CALL LIGHT WITHIN REACH.
--- NOTE | 2024-07-18 20:40 | NUR ---
VS OBTAINED AND RECORDED. BP OBTAINED VIA MANUAL BP. PATIENT RESTING IN BED, RESPIRATIONS EVEN AND UNLABORED. SHE IS A&OX4, DENIES NUMBNESS AND TINGLING IN ANY EXTREMITIES. SCHEDULED MEDICATIONS ADMINISTERED PER ORDER. PATIENT DENIES ANY NEEDS, CALL LIGHT IN REACH.
[2024-07-18] MEDS ORDERED: POLYETHYLENE GLYCOL 3350 1 PACKET PO SCH (21:00)
[2024-07-18] MEDS ORDERED: SENNOSIDES/DOCUSATE 1 EA TAB PO SCH (21:00)
--- NOTE | 2024-07-18 22:18 | NUR ---
CALL LIGHT ANSWERED. PT NEEDED TO USE BATHROOM. PROCESS COORDINATOR SBA WITH CANE TO BATHROOM. PT VOIDED AND ASSISTED BACK TO BED. PT REQUESTING PAIN MED. RN NOTIFED. PT STATES NO FURTHER NEEDS AT THIS TIME. CALL LIGHT WITHIN REACH.
--- NOTE | 2024-07-18 22:20 | NUR ---
CALL LIGHT ANSWERED, PATIENT REQUESTED PRN PAIN MEDICATION FOR 8/10 BACK PAIN AND HEADACHE. PRN MEDICATION ADMINISTERED PER ORDER. SHE DENIES ANY OTHER NEEDS, CALL LIGHT IN REACH.
[2024-07-19] VITALS (7 sets, daily range): BP systolic 144–184; BP diastolic 70–98
--- NOTE | 2024-07-19 00:14 | NUR ---
ROUNDED ON PATIENT, PATIENT RESTING WITH EYES CLOSED, RESPIRATIONS EVEN AND UNLABORED. NO NEEDS IDENTIFIED, ALL PERSONAL BELONGINGS WITHIN REACH. CALL LIGHT IN REACH
--- NOTE | 2024-07-19 01:30 | NUR ---
CONSTRUCTION JOB COST ESTIMATOR OBTAINED VITALS AND I&O. PT NEEDED TO USE BATHROOM. CONSTRUCTION JOB COST ESTIMATOR SBA WITH CANE. PT VOIDED AND ASSISTED BACK TO BED. PT STATES NO FURTHER NEEDS AT THIS TIME. CALL LIGHT WITHIN REACH.
--- NOTE | 2024-07-19 01:46 | NUR ---
IN ROOM TO TAKE MANUAL BP FOLLOWING ELEVATED BP READING FROM RN PICU OVER 180 SBP. MANUAL BP DOCUMENTED. SEE VS DOCUMENTATION. PATIENT IN BED, WATCHING TV. RESPIRATIONS EVEN AND UNLABORED. SHE DENIES ANY NEEDS. CALL LIGHT AND PERSONAL BELONGINGS ARE IN REACH.
--- NOTE | 2024-07-19 04:15 | NUR ---
ROUNDED ON PATIENT, RESPIRATIONS EVEN AND UNLABORED. RESTING WITH EYES CLOSED. NO NEEDS IDENTIFIED, CALL LIGHT IN [place]
[2024-07-19 05:23] LABS: BASOPHILS 0.2 % (0.1-1.2); EOSINOPHILS 0.3 % (0.7-5.8); HEMATOCRIT 31.5 % (34.1-44.9); LYMPHOCYTES 16.5 % (19.3-51.7); MCH 26.3 PG (25.6-32.2); MCHC 31.7 g/dL (32.2-35.5); MCV 82.9 fL (79.4-94.8); MONOCYTES 6.5 % (4.7-12.5); NEUTROPHILS 75.8 % (34.0-71.1); PLATELET COUNT 251 K/uL (182-369)
--- NOTE | 2024-07-19 05:24 | NUR ---
CALL LIGHT ANSWERED. PT NEEDED TO USE BATHROOM. KEY ACCOUNT MANAGER SBA WITH CANE TO BATHROOM. PT VOIDED AND ASSISTED BACK TO BED. VITALS AND I&O OBTAINED. B/P OBTAINED MANUALLY. RN NOTIFED OF HIGH B/P. PT REQUESTING PAIN MEDS. PT STATES NO FURTHER NEEDS AT THIS TIME. CALL LIGHT WITHIN REACH.
[2024-07-19 05:39] LABS: ALBUMIN 3.7 g/dL (3.4-5.0); ALBUMIN/GLOBULIN RATIO 1.12 (1.1-2.4); ANION GAP 11.2 (7-21); BILIRUBIN, TOTAL 0.2 mg/dL (0.2-1.0); BUN/CREATININE RATIO 27.71 (6.0-28.6); CALCIUM 9.3 mg/dL (8.5-10.1); CREATININE, SERUM 0.83 mg/dL (0.55-1.02); POTASSIUM 4.2 mmol/L (3.5-5.1)
--- NOTE | 2024-07-19 05:40 | NUR ---
VS OBTAINED BY PUBLIC WELFARE DIRECTOR. PUBLIC WELFARE DIRECTOR INFORMED RN OF ELEVATED BP. MANUAL BP COMPLETED AND DOCUMENTED IN VS DOCUMENTATION. PATIENT RESTING IN BED, WATCHING TV. SHE STATES THAT SHE HAS A PERSISTENT HEADACHE BUT IT IS TOLERABLE. PATIENT DENIES FURTHER NEEDS AT THIS TIME, CALL LIGHT IN [place].
--- NOTE | 2024-07-19 05:55 | NUR ---
CONFIRMED WITH PROVIDER THAT IT IS OKAY TO DC TELE, TELE OFF AT THIS TIME.
--- NOTE | 2024-07-19 07:00 | NUR ---
REPORT RECEIVED FROM CASTING AGENT RN BONY. PATIENT IS LYING IN BED WITH EYES OPEN AND RESPIRATIONS ARE EVEN AND UNLABORED. PATIENT IS ON THE PHONE. PATIENT STATED NO NEEDS AT THIS TIME. CALL LIGHT AND PERSONAL BELONGINGS ARE WITHIN REACH.
--- NOTE | 2024-07-19 07:30 | NUR ---
PATIENT IS LYING IN BED WITH HOB ELEVATED. FULL ASSESSMENT COMPLETE AND DOCUMENTED IN THE CHART. PATIENT IS ALERT AND ORIENTED TIMES FOUR. PATIENT LAST BM WAS 07/15/24. PATIENT IS A SBA WITH A CANE. PT AND OT ARE ORDERED. CARDIAC WITH NORMAL S1 AND S2 ON AUSCULTATION. PATIENT IS NOT ON TELEMETRY. RADIAL AND PEDAL PULSES ARE STRONG BILATERALLY. SENSATION INTACT WITH NO COMPLAINTS OF NUMBNESS OR TINGLING. CAPILLARY REFILL IS LESS THAN 3 SECONDS IN THE UPPER AND LOWER EXTREMITIES. BILATERAL ANKLES WITH DEPENDENT EDEMA NOTED. IV SITE FLUSHED WITH 10 ML NORMAL SALINE AND IS SALINE LOCKED. IV DRESSING IS CLEAN, DRY, AND INTACT. SKIN WITH SCATTERED TATTOOS NOTED. PATIENT IS ON A REGULAR DIET AND BOWEL TONES ARE ACTIVE IN ALL FOUR QUADRANTS. PATIENT IS ON ROOM AIR AND LUNG SOUNDS ARE CLEAR THROUGHOUT. PATIENT RATED PAIN 8/10 IN THE HEAD AND BACK. PATIENT IS REQUESTING PAIN MEDICATION WHEN IT IS AVAILABLE. FRESH ICE WATER PROVIDED BY [facility]. PATIENT STATED NO FURTHER NEEDS AT THIS TIME. CALL LIGHT AND PERSONAL BELONGINGS ARE WITHIN REACH.
--- NOTE | 2024-07-19 08:01 | NUR ---
UR CONCURRENT/CLINICAL REVIEW: YANICK-[facility]Y [facility] REVIEW MEETS INPT FOR [facility] DC [facility] MET [facility] 07/16/24 @ 1334 ORDER MATCHES REG CLINICALS FAXED TO [facility] FOR REVIEW PLAN TO DC TO HOME TODAY 07/22/24
--- NOTE | 2024-07-19 08:02 | NUR ---
0800 AND 0900 MEDICATIONS ADMINISTERED PER THE EMAR. HOB ELEVATED. PATIENT IS SET UP IN BED FOR BREAKFAST. PATIENT STATED NO FURTHER NEEDS AT THIS TIME. CALL LIGHT AND PERSONAL BELONGINGS ARE WITHIN REACH.
--- NOTE | 2024-07-19 08:41 | NUR ---
PATIENT IN BED AT THIS TIME. THIS CASTING OPERATOR HELPER ASSISTED PATIENT TO BATHROOM AND THEN BACK TO BED. CALL LIGHT WITHIN REACH, NO FURTHER NEEDS AT THIS TIME.
[2024-07-19] MEDS ORDERED: NIFEdipine XL 30 MG TAB PO SCH (09:00)
[2024-07-19] MEDS ORDERED: NIFEdipine XL 30 MG TAB PO ONE (09:15)
--- NOTE | 2024-07-19 09:15 | NUR ---
SPOKE WITH PATIENT REGARDING DC TO HOME TODAY. STATES SHE IS PLANNING ON HAVING HER SON PICK HER UP TODAY TO GO HOME. SHE PLANS TO CALL [facility] TO GET WALKER FOR HOME, THEY HAVE PRESCRIPTION. STATES SHE IS CONCERNED ABOUT CONSTIPATION BUT IS PASSING FLATUS AND FEELS SHE WILL LIKELY HAVE BM SOON.
--- NOTE | 2024-07-19 09:15 | NUR ---
FAXED CHART TO [facility].
--- NOTE | 2024-07-19 09:17 | NUR ---
PATIENT IS IN BED AT THIS TIME, AUDIO VISUAL DIRECTOR CHARTED VITALS AND I&O'S, PATIENT REFUSED A BED BATH. SHE STATED SHE HAD ONE YESTERDAY AND IS OK. I OFFERED HER A WARM WASH CLOTH TO WASH HER FACE AND GOT SUPPLIES FOR HER TO BRUSH HER TEETH. CALL LIGHT [facility] IN [place]. I HELPED GATHER HER THINGS AND NOTHING ELSE NEEDED AT THIS TIME.
--- NOTE | 2024-07-19 10:24 | NUR ---
PATIENT IS LYING IN BED WITH HOB ELEVATED. FRESH CUP OF ICE WATER AND ALEX CHARLEE PROVIDED. PATIENT EDUCATED ON THE PLAN FOR DISCHARGE MOVING FORWARD. PATIENT STATED NO FURTHER NEEDS AT THIS TIME. CALL LIGHT AND PERSONAL BELONGINGS ARE WITHIN REACH.
--- NOTE | 2024-07-19 10:28 | NUR ---
MADE FOLLOWUP FOR PATIENT NEUROLOGIST AT [facility].
[2024-07-19] MEDS ORDERED: CLOPIDOGREL75 MG PO (10:29)
[2024-07-19] MEDS ORDERED: LIPITOR40 MG PO (10:30)
[2024-07-19] MEDS ORDERED: NIFEDIPINE ER30 M1 PO (10:30)
[2024-07-19] MEDS ORDERED: ASPIRIN81 MG PO (10:30)
== END 2024-07-19 11:35 | disposition home or self-care (01) | DRG 64 ==
LOC: ED 09:15 → MS 13:34
PROVIDERS: Emergency Medicine; ADMIT Family Medicine; ATTEND Family Medicine
DX: I63.9 Cerebral infarction, unspecified (principal); G93.6 Cerebral edema; G81.91 Hemiplegia, unspecified affecting right dominant side; I10 Essential (primary) hypertension; K21.9 Gastro-esophageal reflux disease without esophagitis; G35 Multiple sclerosis; G89.29 Other chronic pain; Z66 Do not resuscitate; M34.9 Systemic sclerosis, unspecified; I73.00 Raynaud's syndrome without gangrene; F17.210 Nicotine dependence, cigarettes, uncomplicated; F10.11 Alcohol abuse, in remission; Z90.710 Acquired absence of both cervix and uterus; Z90.49 Acquired absence of other specified parts of digestive tract; Z98.890 Other specified postprocedural states; Z79.891 Long term (current) use of opiate analgesic; Z79.899 Other long term (current) drug therapy; Z93.9 Artificial opening status, unspecified; Z82.49 Family history of ischemic heart disease and other diseases of the circulatory system; Z82.3 Family history of stroke; Z88.1 Allergy status to other antibiotic agents; Z88.8 Allergy status to other drugs, medicaments and biological substances; Z91.048 Other nonmedicinal substance allergy status
CPT/HCPCS: 36415; 70450; 70496; 70498; 70553; 71045; 72156; 80048; 80053; 80061; 80307; 81001; 83036; 83735; 84100; 84484; 85025; 93005; 93010; 93306; 97161; 97165; 97530; 97535; A9270; A9573; G0480; J0780; J1200; J1650; J2250; J2405; J2919; J7030; J7050; Q9967